=== PATIENT | male | born 1955 | race Caucasian/White ===

== ENCOUNTER 2024-03-04 12:56 | Inpatient (IN) | payer MEDICAID, OTHER ==
[~2024-03-04 12:56] MED LIST: Iopamidol-370 76% 500 ML MDV (1 ML CHARGE) ONE
[2024-03-04 13:47] LABS: Bacteria/HPF None Seen HPF (None Seen); Bilirubin Negative (Negative); Blood, Urine Negative (Negative); CAUTI Indications for Culture Dysuria,urgency,freq; Clarity Clear (Clear); Glucose, Urine (Dipstick) Normal (Negative); Ketone, Urine Negative (Negative); Leukocyte Negative Leu/uL (Negative); Nitrite Negative (Negative); Protein, Urine (Dipstick) Negative (Neg-Trace); RBC/HPF None Seen HPF (0-3); Specific Gravity, Urine 1.004 (1.002-1.036); Squamous Epithelial None Seen HPF (0-3); Urobilinogen Normal mg/dL (Less than 2); WBC/HPF None Seen HPF (0-3); pH, Urine 6.5 (5.0-9.0)
[2024-03-04 13:49] LABS: Urine Culture Reflex No No
[2024-03-04 14:49] LABS: #Basophils Less than 0.03 10x3/uL (0.0-0.2); #Eosinphils Less than 0.03 10x3/uL (0.0-0.7); %Basophils 0.3 % (0.0-1.0); %Eosinophils 0.6 % (0.0-10.0); %Lymphocytes 27.5 % (21.0-51.0); %Monocytes 13.7 % (0.0-10.0); %Neutrophils 57.6 % (42.0-75.0); Hematocrit 40.2 % (42.0-52.0); Hemoglobin 13.3 g/dL (14.0-18.0); Mean Corpuscular HGB CONC 33.1 g/dL (32.0-36.0); Mean Corpuscular Hemoglobin 25.7 pg (27.0-31.0); Mean Corpuscular Volume 77.6 fL (78.0-98.0); Platelet Count 161 10x3/uL (130-400); RBC Distribution Width 17.6 % (11.5-14.5); Red Blood Cell (RBC) Count 5.18 mill/uL (4.70-6.10)
[2024-03-04 15:15] LABS: ALT (SGPT) 42 U/L (8-55); AST (SGOT) 112 U/L (5-34); Albumin 3.6 g/dL (3.4-4.8); Alkaline Phosphatase 99 U/L (40-110); Anion Gap 12 mmol/L (10-20); BUN (Urea Nitrogen) 12 mg/dL (8.4-25.7); Bilirubin, Total 0.5 mg/dL (0.2-1.2); Calc. Creatinine Clearance 0 mL/min (70-130); Calcium 9.6 mg/dL (7.8-10.44); Carbon Dioxide 27 mmol/L (23-31); Chloride 107 mmol/L (98-107); Estimated GFR 92; Glucose 99 mg/dL (80-115); Potassium 3.7 mmol/L (3.5-5.1); Protein, Total 7.6 g/dL (5.8-8.1); Sodium 142 mmol/L (136-145)
[2024-03-04] MEDS ORDERED: Ondansetron PF 4 MG/2 ML Vial IVP PRN (16:57)
[2024-03-04] MEDS ORDERED: Morphine 4 MG/ML VIAL SLOW IVP PRN (16:57)
[2024-03-04] MEDS ORDERED: traMADol HCl 50 MG TAB PO PRN (16:59)
[2024-03-04] MEDS ORDERED: Sodium Chloride 0.9% 1,000 ML IV SCH (17:00)
[2024-03-04 17:45] LABS: Anion Gap 12 mmol/L (10-20); BUN (Urea Nitrogen) 11 mg/dL (8.4-25.7); Calc. Creatinine Clearance 0 mL/min (70-130); Calcium 9.1 mg/dL (7.8-10.44); Carbon Dioxide 27 mmol/L (23-31); Chloride 106 mmol/L (98-107); Estimated GFR 95; Glucose 95 mg/dL (80-115); Potassium 3.7 mmol/L (3.5-5.1); Sodium 141 mmol/L (136-145)
[2024-03-04 17:53] LABS: Troponin I 0.022 ng/mL (< 0.028)
[2024-03-04] MEDS ORDERED: hydrALAZINE 20 MG/ML VIAL SLOW IVP PRN (17:53)
[2024-03-04] MEDS ORDERED: hydrALAZINE 20 MG/ML VIAL ONE (18:01)
[2024-03-04] MEDS ORDERED: Ipratropium/Albuterol 3 ML NEB NEB PRN (18:09)
[2024-03-04] MEDS: Acetaminophen 325 MG TAB PO SCH (20:22)
[2024-03-04] MEDS: traMADol HCl 50 MG TAB PO SCH (20:22)
[2024-03-04] MEDS: Famotidine/PF 20 mg/2ml Vial SLOW IVP SCH (20:23)
[2024-03-04] MEDS: Senokot S 8.6-50 MG TAB PO SCH (20:23)
[2024-03-04 20:45] VITALS: BMI 28.4
[2024-03-04] MEDS: Ipratropium/Albuterol 3 ML NEB NEB SCH (22:09)
[2024-03-05 04:23] LABS: #Basophils Less than 0.03 10x3/uL (0.0-0.2); %Basophils 0.6 % (0.0-1.0); %Eosinophils 1.3 % (0.0-10.0); %Lymphocytes 35.8 % (21.0-51.0); %Monocytes 13.2 % (0.0-10.0); %Neutrophils 48.8 % (42.0-75.0); Hematocrit 38.6 % (42.0-52.0); Hemoglobin 12.8 g/dL (14.0-18.0); Mean Corpuscular HGB CONC 33.2 g/dL (32.0-36.0); Mean Corpuscular Hemoglobin 25.4 pg (27.0-31.0); Mean Corpuscular Volume 76.6 fL (78.0-98.0); Mean Platelet Volume 10.5 fL (7.4-10.4); Platelet Count 147 10x3/uL (130-400); RBC Distribution Width 17.8 % (11.5-14.5); Red Blood Cell (RBC) Count 5.04 mill/uL (4.70-6.10)
[2024-03-05 04:55] LABS: Digoxin Less than 0.19 ng/mL (0.8-2.0)
[2024-03-05] MEDS: Carvedilol 6.25 MG TAB PO SCH (08:41)
[2024-03-05] MEDS ORDERED: EPINEPHrine 1 MG/ML VIAL ONE (12:35)
[2024-03-05] MEDS ORDERED: Bupivacaine 0.25% HCL 30 ML VIAL ONE (12:36)
[2024-03-05] MEDS ORDERED: Bupivacaine PF 0.5% 30 ML VIAL ONE (12:36)
[2024-03-05] MEDS ORDERED: Lidocaine 1% PF 5 ML VIAL ONE (12:50)
[2024-03-05] MEDS ORDERED: Dexamethasone 20 MG/5 ML VIAL ONE (12:50)
[2024-03-05] MEDS ORDERED: Ondansetron PF 4 MG/2 ML Vial ONE (12:50)
[2024-03-05] MEDS ORDERED: fentaNYL PF 100 MCG/2 ML SYRINGE ONE (12:50)
[2024-03-05] MEDS ORDERED: PROPOFOL 20 ML ONE (12:51)
[2024-03-05] MEDS ORDERED: Sodium Chloride 0.9% 100 ML ONE (12:52)
[2024-03-05] MEDS ORDERED: CEFAZOLIN 2 GM VIAL ONE (12:52)
[2024-03-05] MEDS ORDERED: Etomidate 40 MG (20 mL) VIAL ONE (12:59)
[2024-03-05] MEDS ORDERED: Rocuronium Bromide 10 MG/ML (10ML VIAL) ONE (13:03)
[2024-03-05] MEDS ORDERED: Ketamine In 0.9 % NaCl 50 MG/5 ML SYRINGE ONE (13:05)
[2024-03-05] MEDS ORDERED: Midazolam HCl 2 mg/2 ml Vial ONE (13:10)
[2024-03-05] MEDS ORDERED: Glycopyrrolate 0.2 MG/ML 5 ML SYRINGE ONE (13:17)
[2024-03-05] MEDS ORDERED: Albuterol HFA (OR) 200 PUFF INH ONE ×2 (13:29→14:42)
[2024-03-05] MEDS ORDERED: PHENYLEPHRINE-NS 100 MCG/ML 10 ML SYRINGE ONE (13:29)
[2024-03-05] MEDS ORDERED: SUGAMMADEX SODIUM 200 MG/2 ML VIAL ONE (14:18)
[2024-03-05] MEDS ORDERED: fentaNYL 50 mcg/mL 1 mL Vial ONE ×4 (14:49→16:01)
[2024-03-05] MEDS ORDERED: Ondansetron PF 4 MG/2 ML Vial IVP PRN (15:22)
[2024-03-05] MEDS ORDERED: Dextrose 5% in Water 1,000 ML IV PRN (15:22)
[2024-03-05] MEDS ORDERED: Mag-Al 1200 mg/1200 mg/30 ML UDCUP PO PRN (15:22)
[2024-03-05] MEDS ORDERED: Dextrose 50% Abboject 50 ML SYRINGE SLOW IVP PRN (15:22)
[2024-03-05] MEDS ORDERED: Glucagon 1 MG/ML KIT IM PRN (15:22)
[2024-03-05] MEDS ORDERED: Ipratropium/Albuterol 3 ML NEB NEB PRN (15:22)
[2024-03-05] MEDS ORDERED: Calcium Carbonate 500 MG ChewTAB PO PRN (15:22)
[2024-03-05] MEDS ORDERED: hydrALAZINE 20 MG/ML VIAL ONE (15:33)
[2024-03-05] MEDS ORDERED: HYDROcodone/Acetaminophen 5/325 mg Tablet PO PRN (15:49)
[2024-03-05] MEDS: Ketorolac Tromethamine 30 MG (1 mL) VIAL IVP SCH (17:58)
[2024-03-05] MEDS: Ipratropium/Albuterol 3 ML NEB NEB SCH (18:41)
[2024-03-05] MEDS: Famotidine 20 MG TAB PO SCH (21:08)
[2024-03-05] MEDS: Docusate 100 MG CAP PO SCH (21:08)
[2024-03-06 05:06] LABS: Troponin I 0.018 ng/mL (< 0.028)
[2024-03-06] MEDS: Empagliflozin 10 MG TAB PO SCH (08:29)
[2024-03-06] MEDS: Enoxaparin 40 MG (0.4 mL) SYRINGE SC SCH (08:30)
[2024-03-06 09:01] LABS: #Basophils Less than 0.03 10x3/uL (0.0-0.2); #Eosinphils Less than 0.03 10x3/uL (0.0-0.7); %Basophils 0.1 % (0.0-1.0); %Lymphocytes 7.8 % (21.0-51.0); %Monocytes 7.7 % (0.0-10.0); %Neutrophils 83.9 % (42.0-75.0); Hematocrit 39.3 % (42.0-52.0); Hemoglobin 12.8 g/dL (14.0-18.0); Mean Corpuscular HGB CONC 32.6 g/dL (32.0-36.0); Mean Corpuscular Hemoglobin 25.4 pg (27.0-31.0); Mean Platelet Volume 10.4 fL (7.4-10.4); Platelet Count 173 10x3/uL (130-400); RBC Distribution Width 18.3 % (11.5-14.5); Red Blood Cell (RBC) Count 5.04 mill/uL (4.70-6.10)
[2024-03-06 09:33] LABS: Anion Gap 12 mmol/L (10-20); BUN (Urea Nitrogen) 28 mg/dL (8.4-25.7); Calc. Creatinine Clearance 53 mL/min (70-130); Calcium 9.1 mg/dL (7.8-10.44); Carbon Dioxide 25 mmol/L (23-31); Chloride 104 mmol/L (98-107); Estimated GFR 49; Glucose 116 mg/dL (80-115); Sodium 137 mmol/L (136-145)
[2024-03-06] MEDS: Sodium Chloride 0.45% 1,000 ML IV SCH (10:33)
[2024-03-07 04:43] LABS: #Basophils Less than 0.03 10x3/uL (0.0-0.2); %Basophils 0.1 % (0.0-1.0); %Eosinophils 0.4 % (0.0-10.0); %Lymphocytes 22.3 % (21.0-51.0); %Monocytes 9.6 % (0.0-10.0); %Neutrophils 67.2 % (42.0-75.0); Hematocrit 34.8 % (42.0-52.0); Hemoglobin 11.2 g/dL (14.0-18.0); Mean Corpuscular HGB CONC 32.2 g/dL (32.0-36.0); Mean Corpuscular Hemoglobin 25.6 pg (27.0-31.0); Mean Corpuscular Volume 79.6 fL (78.0-98.0); Mean Platelet Volume 10.4 fL (7.4-10.4); Platelet Count 130 10x3/uL (130-400); RBC Distribution Width 18.2 % (11.5-14.5); Red Blood Cell (RBC) Count 4.37 mill/uL (4.70-6.10)
[2024-03-07 05:04] LABS: Anion Gap 12 mmol/L (10-20); BUN (Urea Nitrogen) 31 mg/dL (8.4-25.7); Calc. Creatinine Clearance 61 mL/min (70-130); Calcium 8.5 mg/dL (7.8-10.44); Carbon Dioxide 22 mmol/L (23-31); Chloride 104 mmol/L (98-107); Estimated GFR 58; Glucose 89 mg/dL (80-115); Potassium 3.8 mmol/L (3.5-5.1); Sodium 134 mmol/L (136-145)
[2024-03-07] MEDS: Aspirin 81 mg Enteric Coated Tablet PO SCH (08:42)
[2024-03-07] MEDS: hydrALAZINE 20 MG/ML VIAL SLOW IVP PRN (08:42)
[2024-03-07] MEDS: Carvedilol 6.25 MG TAB PO SCH (08:43)
[2024-03-08 04:21] LABS: Anion Gap 13 mmol/L (10-20); BUN (Urea Nitrogen) 24 mg/dL (8.4-25.7); Calc. Creatinine Clearance 102 mL/min (70-130); Calcium 8.5 mg/dL (7.8-10.44); Carbon Dioxide 23 mmol/L (23-31); Chloride 106 mmol/L (98-107); Estimated GFR 95; Glucose 83 mg/dL (80-115); Sodium 138 mmol/L (136-145)
[2024-03-08 04:24] LABS: #Basophils Less than 0.03 10x3/uL (0.0-0.2); %Basophils 0.3 % (0.0-1.0); %Eosinophils 0.8 % (0.0-10.0); %Monocytes 15.1 % (0.0-10.0); %Neutrophils 48.5 % (42.0-75.0); Hematocrit 33.2 % (42.0-52.0); Mean Corpuscular HGB CONC 33.1 g/dL (32.0-36.0); Mean Corpuscular Hemoglobin 26.5 pg (27.0-31.0); Mean Platelet Volume 10.3 fL (7.4-10.4); Platelet Count 122 10x3/uL (130-400); RBC Distribution Width 18.5 % (11.5-14.5); Red Blood Cell (RBC) Count 4.15 mill/uL (4.70-6.10)
[2024-03-08 08:48] VITALS: BP 177/96; TEMP 97.9
[2024-03-08] MEDS ORDERED: Non-Formulary Item 1 EACH (Lisinopril [Lisinopril] 40 MG Tablet) PO SCH (09:00)
[2024-03-08] MEDS ORDERED: Lisinopril 20 MG TAB PO SCH (09:00)
[2024-03-08] MEDS: Lisinopril 20 MG TAB PO SCH (09:39)
== END 2024-03-08 11:10 | DRG 711 ==
LOC: ERS 12:56 → 2SW 17:07 → EEVIPCON 17:11 → OBSVTOIN 17:11
PROVIDERS: ADMIT Internal Medicine; ATTEND Family Medicine
PROC: 0VB60ZZ Excision of Right Tunica Vaginalis, Open Approach (ICD-10-PCS; principal; 2024-03-05)
DX: N43.3 Hydrocele, unspecified (principal); I50.22 Chronic systolic (congestive) heart failure; K40.30 Unilateral inguinal hernia, with obstruction, without gangrene, not specified as recurrent; N17.9 Acute kidney failure, unspecified; I25.10 Atherosclerotic heart disease of native coronary artery without angina pectoris; J44.9 Chronic obstructive pulmonary disease, unspecified; I11.0 Hypertensive heart disease with heart failure; F17.210 Nicotine dependence, cigarettes, uncomplicated; I73.9 Peripheral vascular disease, unspecified; E78.5 Hyperlipidemia, unspecified; I25.5 Ischemic cardiomyopathy; Z90.49 Acquired absence of other specified parts of digestive tract; Z98.890 Other specified postprocedural states; Z79.899 Other long term (current) drug therapy
CPT/HCPCS: 36415; 71045; 74177; 80048; 80053; 80162; 81001; 83880; 84443; 84484; 85025; 88302; 93005; 94640; 96374; A6258; J0171; J0360; J0665; J1100; J1650; J1885; J2250; J2405; J2704; J3010; J3490; J7620; Q9967; S0028

== ENCOUNTER 2025-05-15 08:00 | Inpatient (IN) | payer OTHER, MEDICAID ==
[2025-05-15 08:30] LABS: Actual Bicarbonate (HCO3a) 25.9 mEq/L (22-28); Analyzer IN Cardio ER; Base Excess (BEa) -0.1 mEq/L (-2.0 to +3.0); CO2 Tension 47.2 mmHg (35.0-45.0); Calcium, Ionized (arterial) 1.13 mmol/L (1.12-1.30); Hematocrit-ABG 41 % (42.0-52.0); Hemoglobin (Hb) 14.0 g/dL (14.0-18.0); O2 Tension (PaO2), arterial 83.1 mmHg (> 70.0); pH, Arterial 7.357 (7.35-7.45)
[2025-05-15] MEDS ORDERED: Ondansetron PF 4 MG/2 ML Vial IVP PRN (09:00)
[2025-05-15] MEDS ORDERED: Electrolyte Replacement Protocol 1 EACH FS SCH ×2 (09:00→10:45)
[2025-05-15] MEDS ORDERED: Acetaminophen 325 MG TAB PO PRN (09:00)
[2025-05-15] MEDS ORDERED: Ventilator Sedation Protocol 1 EACH FS SCH (09:03)
[2025-05-15 09:11] LABS: Acetaminophen Less than 10 mcg/mL (Less than 10); Salicylate Less than 8.0 mg/dL (Less than 8.0)
[2025-05-15 09:15] LABS: ALT (SGPT) 10 U/L (Less than 45); AST (SGOT) 119 U/L (11-34); Albumin 3.2 g/dL (3.1-4.5); Alkaline Phosphatase 74 U/L (40-110); Anion Gap 15 mmol/L (10-20); BUN (Urea Nitrogen) 13 mg/dL (8.4-25.7); Bilirubin, Total 0.7 mg/dL (0.3-1.2); Calc. Creatinine Clearance 0 mL/min (70-130); Calcium 8.5 mg/dL (7.8-10.44); Carbon Dioxide 24 mmol/L (23-31); Chloride 104 mmol/L (98-107); Globulin 3.3 g/dL (2.4-3.5); Glucose 112 mg/dL (83-110); Potassium 2.5 mmol/L (3.5-5.1); Sodium 140 mmol/L (136-145)
[2025-05-15 09:20] LABS: #Basophils Less than 0.03 10x3/uL (0.0-0.2); #Eosinophils Less than 0.03 10x3/uL (0.0-0.7); #Monocytes 0.41 10x3/uL (0.11-0.59); #Neutrophils 4.67 10x3/uL (1.40-6.50); %Basophils 0.2 % (0.0-1.0); %Eosinophils 0.2 % (0.0-10.0); %Lymphocytes 7.4 % (21.0-51.0); %Monocytes 7.4 % (0.0-10.0); %Neutrophils 84.3 % (42.0-75.0); Hematocrit 38.1 % (42.0-52.0); Hemoglobin 12.8 g/dL (14.0-18.0); INR-International Normal Ratio 1.4; Mean Corpuscular Hemoglobin 29.3 pg (27.0-31.0); Mean Corpuscular Volume 87.2 fL (78.0-98.0); PTT 29.9 sec (22.9-36.1); Platelet Count 108 10x3/uL (130-400); Prothrombin Time 16.9 sec (12.0-14.7); Red Blood Cell (RBC) Count 4.37 mill/uL (4.70-6.10); White Blood Cell (WBC) Count 5.54 10x3/uL (4.8-10.8)
[2025-05-15 09:22] LABS: CK (CPK) 4466 U/L (30-200)
[2025-05-15] MEDS ORDERED: Fentanyl BOLUS 100 ML IVPB PRN (09:45)
[2025-05-15] MEDS ORDERED: Propofol BOLUS 1,000 MG/100 ML VIAL IV PRN (09:45)
[2025-05-15] MEDS ORDERED: DISCONTINUE PREVIOUS NARCOTIC PAIN MEDICATIONS AND BENZODIAZEPINES FS SCH (09:45)
[2025-05-15 10:20] LABS: Platelet Adequacy Comment Platelets Decreased; Polychromasia SLIGHT = 2-3 cells HPF (0-2)
[2025-05-15] MEDS: Potassium Chloride 20 MEQ in Premix 1 BAG IVPB SCH (10:43)
[2025-05-15 13:05] LABS: ALT (SGPT) 23 U/L (Less than 45); AST (SGOT) 286 U/L (11-34); Albumin 3.1 g/dL (3.1-4.5); Alkaline Phosphatase 73 U/L (40-110); Anion Gap 16 mmol/L (10-20); BUN (Urea Nitrogen) 12 mg/dL (8.4-25.7); Bilirubin, Total 0.6 mg/dL (0.3-1.2); Calc. Creatinine Clearance 67 mL/min (70-130); Calcium 8.6 mg/dL (7.8-10.44); Carbon Dioxide 27 mmol/L (23-31); Chloride 103 mmol/L (98-107); Globulin 3.3 g/dL (2.4-3.5); Glucose 116 mg/dL (83-110); Magnesium 2.2 mg/dL (1.6-2.6); Potassium 3.2 mmol/L (3.5-5.1); Sodium 143 mmol/L (136-145)
[2025-05-15 13:13] LABS: CK (CPK) 11187 U/L (30-200)
[2025-05-15] MEDS: Enoxaparin 40 MG (0.4 mL) SYRINGE SC SCH (13:57)
[2025-05-15 20:47] LABS: Potassium 3.9 mmol/L (3.5-5.1)
[2025-05-16 04:41] LABS: #Basophils Less than 0.03 10x3/uL (0.0-0.2); #Eosinophils Less than 0.03 10x3/uL (0.0-0.7); #Monocytes 0.17 10x3/uL (0.11-0.59); #Neutrophils 4.42 10x3/uL (1.40-6.50); %Basophils 0.0 % (0.0-1.0); %Eosinophils 0.0 % (0.0-10.0); %Lymphocytes 5.2 % (21.0-51.0); %Monocytes 3.5 % (0.0-10.0); %Neutrophils 91.1 % (42.0-75.0); Hematocrit 36.7 % (42.0-52.0); Hemoglobin 12.2 g/dL (14.0-18.0); Mean Corpuscular Hemoglobin 29.6 pg (27.0-31.0); Mean Corpuscular Volume 89.1 fL (78.0-98.0); Platelet Count 99 10x3/uL (130-400); Red Blood Cell (RBC) Count 4.12 mill/uL (4.70-6.10); White Blood Cell (WBC) Count 4.85 10x3/uL (4.8-10.8)
[2025-05-16 06:10] VITALS: BMI 25.8
[2025-05-16 08:34] LABS: Alkaline Phosphatase 62 U/L (40-110); Anion Gap 17 mmol/L (10-20); Bilirubin, Total 0.5 mg/dL (0.3-1.2); Carbon Dioxide 23 mmol/L (23-31); Globulin 3.1 g/dL (2.4-3.5)
[2025-05-16 08:35] LABS: ALT (SGPT) 25 U/L (Less than 45); AST (SGOT) 290 U/L (11-34); BUN (Urea Nitrogen) 14 mg/dL (8.4-25.7); Calc. Creatinine Clearance 60 mL/min (70-130)
[2025-05-16 08:45] LABS: CK (CPK) 4665 U/L (30-200)
[2025-05-16 08:48] LABS: Albumin 2.7 g/dL (3.1-4.5); Calcium 8.2 mg/dL (7.8-10.44); Chloride 106 mmol/L (98-107); Glucose 178 mg/dL (83-110); Potassium 3.5 mmol/L (3.5-5.1); Sodium 142 mmol/L (136-145)
[2025-05-16] MEDS: Pantoprazole 40 MG VIAL IVP SCH (10:00)
[2025-05-16] MEDS: FLU (Fluad Triv) 25-26 (65UP)PF 45 MCG/0.5 ML Syringe IM ONE (10:00)
[2025-05-16] MEDS: Aspirin 81 mg Enteric Coated Tablet PO SCH (10:00)
[2025-05-16] MEDS: Potassium Chloride 20 MEQ in Premix 1 BAG IVPB SCH (11:55)
[2025-05-16 12:17] VITALS: BMI 25.8
[2025-05-16 12:45] LABS: Potassium - ABG Lab 2.55 mmol/L (3.70-5.30)
[2025-05-17 04:49] LABS: ALT (SGPT) 24 U/L (Less than 45); AST (SGOT) 203 U/L (11-34); Albumin 2.5 g/dL (3.1-4.5); Alkaline Phosphatase 57 U/L (40-110); Anion Gap 12 mmol/L (10-20); BUN (Urea Nitrogen) 22 mg/dL (8.4-25.7); Bilirubin, Total 0.4 mg/dL (0.3-1.2); CK (CPK) 1593 U/L (30-200); Calc. Creatinine Clearance 47 mL/min (70-130); Calcium 8.1 mg/dL (7.8-10.44); Carbon Dioxide 26 mmol/L (23-31); Chloride 108 mmol/L (98-107); Globulin 3.0 g/dL (2.4-3.5); Glucose 132 mg/dL (83-110); Magnesium 1.9 mg/dL (1.6-2.6); Potassium 4.2 mmol/L (3.5-5.1); Sodium 142 mmol/L (136-145)
[2025-05-17 05:14] LABS: #Basophils Less than 0.03 10x3/uL (0.0-0.2); #Eosinophils Less than 0.03 10x3/uL (0.0-0.7); #Monocytes 0.28 10x3/uL (0.11-0.59); #Neutrophils 5.65 10x3/uL (1.40-6.50); %Basophils 0.2 % (0.0-1.0); %Eosinophils 0.0 % (0.0-10.0); %Lymphocytes 4.8 % (21.0-51.0); %Monocytes 4.4 % (0.0-10.0); %Neutrophils 89.5 % (42.0-75.0); Hematocrit 35.0 % (42.0-52.0); Hemoglobin 11.6 g/dL (14.0-18.0); Mean Corpuscular Hemoglobin 29.7 pg (27.0-31.0); Mean Corpuscular Volume 89.7 fL (78.0-98.0); Platelet Count 103 10x3/uL (130-400); Red Blood Cell (RBC) Count 3.90 mill/uL (4.70-6.10); White Blood Cell (WBC) Count 6.31 10x3/uL (4.8-10.8)
[2025-05-17 05:40] LABS: Platelet Adequacy Comment Platelets Decreased; RBC Morphology Within Normal Limits
[2025-05-17] MEDS: Magnesium 2 GM/50 ML(in water) 2 GM in Premix 1 BAG IVPB SCH (09:30)
[2025-05-17 21:15] LABS: ALT (SGPT) 23 U/L (Less than 45); AST (SGOT) 173 U/L (11-34); Albumin 2.7 g/dL (3.1-4.5); Alkaline Phosphatase 54 U/L (40-110); Anion Gap 12 mmol/L (10-20); BUN (Urea Nitrogen) 29 mg/dL (8.4-25.7); Bilirubin, Total 0.3 mg/dL (0.3-1.2); Calc. Creatinine Clearance 59 mL/min (70-130); Calcium 8.2 mg/dL (7.8-10.44); Carbon Dioxide 27 mmol/L (23-31); Chloride 109 mmol/L (98-107); Globulin 3.0 g/dL (2.4-3.5); Glucose 105 mg/dL (83-110); Magnesium 2.5 mg/dL (1.6-2.6); Potassium 4.3 mmol/L (3.5-5.1); Sodium 144 mmol/L (136-145)
[2025-05-18] MEDS: MINERAL OIL/WHITE PETROLATUM 3.5 GM TUBE EA EYE PRN (01:38)
[2025-05-18 04:33] LABS: #Basophils Less than 0.03 10x3/uL (0.0-0.2); #Eosinophils Less than 0.03 10x3/uL (0.0-0.7); #Monocytes 0.25 10x3/uL (0.11-0.59); #Neutrophils 4.41 10x3/uL (1.40-6.50); %Basophils 0.0 % (0.0-1.0); %Eosinophils 0.0 % (0.0-10.0); %Lymphocytes 6.6 % (21.0-51.0); %Monocytes 5.0 % (0.0-10.0); %Neutrophils 88.0 % (42.0-75.0); Hematocrit 35.9 % (42.0-52.0); Hemoglobin 11.8 g/dL (14.0-18.0); Mean Corpuscular Hemoglobin 29.9 pg (27.0-31.0); Mean Corpuscular Volume 91.1 fL (78.0-98.0); Platelet Count 104 10x3/uL (130-400); Red Blood Cell (RBC) Count 3.94 mill/uL (4.70-6.10); White Blood Cell (WBC) Count 5.01 10x3/uL (4.8-10.8)
[2025-05-18 04:40] LABS: Anion Gap 9 mmol/L (10-20); BUN (Urea Nitrogen) 26 mg/dL (8.4-25.7); CK (CPK) 734 U/L (30-200); Calc. Creatinine Clearance 67 mL/min (70-130); Calcium 8.2 mg/dL (7.8-10.44); Carbon Dioxide 29 mmol/L (23-31); Chloride 108 mmol/L (98-107); Glucose 119 mg/dL (83-110); Magnesium 2.4 mg/dL (1.6-2.6); Potassium 4.4 mmol/L (3.5-5.1); Sodium 142 mmol/L (136-145)
[2025-05-18] MEDS: Furosemide 20 MG (2 mL) VIAL SLOW IVP SCH (19:01)
[2025-05-18] MEDS: Amoxicillin/Potassium Clav 875 MG TAB PO SCH (20:19)
[2025-05-19] MEDS: Furosemide 20 MG (2 mL) VIAL SLOW IVP SCH (08:40)
[2025-05-19] MEDS: predniSONE 20 MG TAB PO SCH (08:42)
[2025-05-19 13:16] VITALS: BP 172/103; TEMP 97.6
== END 2025-05-19 13:14 | disposition home or self-care (01) | DRG 917 ==
LOC: ERS 08:00 → ERHOLD 09:00 → CCU 09:53 → MSONC 05-18 12:04
PROVIDERS: ADMIT Internal Medicine; ATTEND Internal Medicine
PROC: XX20X89 Monitoring of Brain Electrical Activity, Computer-aided Detection and Notification, New Technology Group 9 (ICD-10-PCS; principal; 2025-05-15)
PROC: 3E03329 Introduction of Other Anti-infective into Peripheral Vein, Percutaneous Approach (ICD-10-PCS; 2025-05-15)
PROC: 3E02340 Introduction of Influenza Vaccine into Muscle, Percutaneous Approach (ICD-10-PCS; 2025-05-15)
PROC: 4A03351 Measurement of Arterial Flow, Peripheral, Percutaneous Approach (ICD-10-PCS; 2025-05-15)
DX: T50.991A Poisoning by other drugs, medicaments and biological substances, accidental (unintentional), initial encounter (principal); G92.8 Other toxic encephalopathy; J96.01 Acute respiratory failure with hypoxia; I21.A1 Myocardial infarction type 2; I50.23 Acute on chronic systolic (congestive) heart failure; J69.0 Pneumonitis due to inhalation of food and vomit; I42.9 Cardiomyopathy, unspecified; N17.9 Acute kidney failure, unspecified; M62.82 Rhabdomyolysis; J44.9 Chronic obstructive pulmonary disease, unspecified; F15.10 Other stimulant abuse, uncomplicated; F17.210 Nicotine dependence, cigarettes, uncomplicated; R56.9 Unspecified convulsions; I11.0 Hypertensive heart disease with heart failure; Z95.1 Presence of aortocoronary bypass graft; Z90.49 Acquired absence of other specified parts of digestive tract; Z98.890 Other specified postprocedural states; Z79.899 Other long term (current) drug therapy; Z79.82 Long term (current) use of aspirin; Z79.52 Long term (current) use of systemic steroids
CPT/HCPCS: 36416; 71045; 80048; 80053; 80307; 82550; 82805; 83605; 83735; 84145; 85025; 85730; 93005; 93306; 94002; 94003; 94640; 94760; J1650; J1940; J2060; J2470; J2543; J2704; J2919; J3475; J3480; J7030; J7120; J7512